=== PATIENT | female | born 1955 | race African-American/Black ===

== ENCOUNTER 2016-12-12 08:00 | Outpatient (CLI) | payer MEDICAID | END 2016-12-12 08:01 | DX: E11.9 Type 2 diabetes mellitus without complications (principal) ==

== ENCOUNTER 2016-12-16 15:36 | Outpatient (CLI) | payer MEDICAID | END 2016-12-16 15:37 | disposition home or self-care (01) | DX: M17.11 Unilateral primary osteoarthritis, right knee (principal) ==

== ENCOUNTER 2017-04-16 15:13 | Outpatient (CLI) | payer MEDICAID ==
[2017-04-16 19:51] LABS: CALCIUM 9.1 mg/dL (8.5-10.3); CREATININE 1.3 mg/dL (0.4-1.0); POTASSIUM 4.2 mmol/L (3.5-5.0)
[2017-04-16 20:07] LABS: HEMOGLOBIN A1C 0.64 g/dL
== END 2017-04-16 15:14 | disposition home or self-care (01) ==
LOC: LAB.N 15:13
PROVIDERS: ATTEND Family Medicine
DX: E11.9 Type 2 diabetes mellitus without complications (principal)
CPT/HCPCS: 36415; 80048; 83036

== ENCOUNTER 2017-07-26 12:40 | Outpatient (CLI) | payer MEDICAID | END 2017-07-26 12:41 | disposition E | LOC: EMS 12:40 | PROVIDERS: ATTEND Surgery ==